=== PATIENT | female | born 1970 | race Caucasian/White ===

== ENCOUNTER → 2021-09-01 13:17 | Outpatient (CLI) | payer OTHER, SELFPAY ==
--- NOTE | 2021-09-01 13:20 | DI.MRI.S_ITS ---
PROCEDURE: MR KNEE LT WO CON INDICATIONS: PAIN IN LEFT KNEE TECHNIQUE: Noncontrast sagittal PD fast spin echo and T2 fast spin echo with fat saturation, sagittal 3-D FLASH with fat saturation; coronal T1 spin echo and PD fast spin echo with fat saturation, and axial PD fast spin echo with fat saturation through the knee. COMPARISON: None. FINDINGS: Image quality: Excellent. Menisci: The medial and lateral menisci demonstrate normal morphology and internal signal. The meniscal root ligaments appear intact. Cruciate ligaments: The anterior and posterior cruciate ligaments appear intact. Medial structures: The medial collateral ligament appears intact. Visualized portions of the pes anserinus tendons appear normal. No abnormal bursal fluid. Lateral structures: The lateral collateral ligament, long and short heads of the biceps femoris tendon appear intact. The popliteus tendon appears normal. Iliotibial band appears normal. Anterior structures: The quadriceps and patellar tendons appear intact. Patellar alignment is maintained. No edema in the infrapatellar fat pad. Bones and cartilage: No bone marrow contusions or fractures. Deficiency of the hyaline cartilage overlying the medial aspect of the patella apex with underlying subchondral edema, compatible with osteochondral injury. Delamination injury of the lateral patellar facet hyaline cartilage. The medial and lateral compartment hyaline cartilage demonstrates signal heterogeneity but maintained thickness. Fraying of the hyaline cartilage involving the inner aspect of the medial femoral condyle. Joint space: Small knee joint fluid. Trace Escobar's cyst. IMPRESSION: 1. 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 2. Small joint effusion. Dictated by: Isaiah Morton M.D. on 09/03/2021 at 9:08 Approved by: Isaiah Morton M.D. on 09/03/2021 at 9:23
== END ==
PROVIDERS: PCP Physician Assistant; Referring Provider Physician Assistant; Visit Provider Physician Assistant
DX: M25.562 Pain in left knee (principal); M25.462 Effusion, left knee
CPT/HCPCS: 73721